=== PATIENT | male | born 1950 | race Hispanic/Latino ===

== ENCOUNTER 2018-01-08 10:00 | Day surgery (SDC) | payer OTHER ==
[~2018-01-08] VITALS: Ht 175.3 cm; Wt 86.0 kg
[2018-01-08] VITALS (9 sets, daily range): BP systolic 75–126; BP diastolic 28–76
[~2018-01-08 10:00] MED LIST: SODIUM CHLORIDE 0.9% 1000ML 1,000 ML IV ONE
[2018-01-08] MEDS ORDERED: METF-444 PO (11:39)
[2018-01-08] MEDS ORDERED: NYST15CR TP (11:39)
[2018-01-08] MEDS ORDERED: LOSA50TA25 PO (11:39)
[2018-01-08] MEDS ORDERED: zinc (11:39)
[2018-01-08] MEDS ORDERED: daily fiber PO (11:39)
[2018-01-08] MEDS ORDERED: DAPA10TA PO (11:39)
[2018-01-08] MEDS ORDERED: ASPI-1012 PO (11:39)
[2018-01-08] MEDS ORDERED: VITA1CAP12 PO (11:39)
[2018-01-08] MEDS ORDERED: omega 3 (11:39)
[2018-01-08] MEDS ORDERED: [UNRECOGNIZED DRUG - OTHER] PO (11:39)
[2018-01-08] MEDS ORDERED: IBUP-2077 PO (11:39)
[2018-01-08] MEDS ORDERED: vitamin b12 PO (11:39)
[2018-01-08] MEDS ORDERED: [UNRECOGNIZED DRUG - CODE] PO (11:39)
[2018-01-08] MEDS ORDERED: magnesium (11:39)
[2018-01-08] MEDS ORDERED: ATOR20TA65 PO (11:39)
[2018-01-08] MEDS ORDERED: LINA5TAB PO (11:39)
[2018-01-08] MEDS ORDERED: CALC-687 PO (11:39)
[2018-01-08] MEDS ORDERED: GABA-531 PO (11:39)
[2018-01-08] MEDS ORDERED: omega xl PO (11:39)
[2018-01-08] MEDS ORDERED: vitamin d3 PO (11:39)
[2018-01-08] MEDS ORDERED: PROPOFOL 10 MG/ML 20ML VIAL IV ONE ×2 (11:53→12:24)
[2018-01-08] MEDS ORDERED: EPHEDRINE SULFATE 50 MG/ML AMPULE ONE (12:50)
== END 2018-01-08 13:32 | disposition home or self-care (01) ==
LOC: DAH 10:00 → ENDO 10:00
PROVIDERS: ATTEND Internal Medicine Gastroenterology
DX: D12.3 Benign neoplasm of transverse colon (principal); D12.4 Benign neoplasm of descending colon; I25.10 Atherosclerotic heart disease of native coronary artery without angina pectoris; E11.9 Type 2 diabetes mellitus without complications; Z79.899 Other long term (current) drug therapy; I10 Essential (primary) hypertension; I21.3 ST elevation (STEMI) myocardial infarction of unspecified site; M19.90 Unspecified osteoarthritis, unspecified site; Z98.890 Other specified postprocedural states; Z95.1 Presence of aortocoronary bypass graft; Z80.0 Family history of malignant neoplasm of digestive organs; Z82.49 Family history of ischemic heart disease and other diseases of the circulatory system; I44.4 Left anterior fascicular block
CPT/HCPCS: 45380; 45381; 45385; 82948 ×2; 88305; 93005; A4606; J2704 ×2; J3490; J7030; 45384

== ENCOUNTER → 2021-11-24 | Outpatient (CLI) | payer OTHER ==
[~2021-11-24] MED LIST changes: +ACET-3338 PO; +ATOR20TA65 PO; +CALC-687 PO; +DAPA10TA PO; +GABA-531 PO; +LINA5TAB PO; +LOSA50TA64 PO; +METF-444 PO; +NYST15CR39 TP; -SODIUM CHLORIDE 0.9% 1000ML 1,000 ML IV ONE; +VITA1CAP12 PO; +[UNRECOGNIZED DRUG - OTHER] PO; +daily fiber PO; +magnesium; +omega 3; +omega xl PO; +vitamin b12 PO; +vitamin d3 PO; +zinc
== END | disposition home or self-care (01) ==
LOC: OIH 13:25
PROVIDERS: ATTEND Internal Medicine Cardiovascular Disease
DX: I87.2 Venous insufficiency (chronic) (peripheral) (principal); I73.9 Peripheral vascular disease, unspecified
CPT/HCPCS: 93925; 93970